=== PATIENT | female | born 1985 | race Caucasian/White ===

== ENCOUNTER 2016-11-18 22:35 | Emergency (ER) | payer SELFPAY ==
[2016-11-18 23:14] VITALS: BP 105/62
== END 2016-11-19 00:11 | disposition left against medical advice (07) ==
LOC: MW.ED 22:35
DX: Z53.21 Procedure and treatment not carried out due to patient leaving prior to being seen by health care provider (principal)
CPT/HCPCS: 99282

== ENCOUNTER 2022-07-23 06:25 | Day surgery (SDC) | payer BC ==
[~2022-07-23 06:25] MED LIST: Scopolamine 1.5 MG Transdermal Patch ONE; Scopolamine 1.5 MG Transdermal Patch TOP ONE; ceFAZolin 2 GM in Premix Bag 1 BAG IV ONE
[2022-07-23] MEDS ORDERED: Lactated Ringers 1,000 ML IV SCH (06:30)
[2022-07-23] MEDS ORDERED: Bupivacaine 0.25% 30 ML SDV ONE (07:28)
[2022-07-23] MEDS ORDERED: Methylene Blue 50 MG/10 ML Ampule ONE (07:28)
[2022-07-23] MEDS ORDERED: Propofol 200 MG/20 ML SDV ONE ×2 (07:42→09:35)
[2022-07-23] MEDS ORDERED: fentaNYL 100 MCG/2 ML SDV ONE (07:42)
[2022-07-23] MEDS ORDERED: Water For Injection, Sterile 20 ML ONE (07:47)
[2022-07-23] MEDS ORDERED: Ropivacaine 0.5% 5 MG/ML 30 ML SDV ONE (07:49)
[2022-07-23] MEDS ORDERED: Famotidine 20 MG/2 ML SDV ONE (07:49)
[2022-07-23] MEDS ORDERED: Morphine Sulfate 10mg/ml SDV ONE (08:17)
[2022-07-23] MEDS ORDERED: Ondansetron 4 MG/2 ML SDV IVPUSH PRN ×2 (08:20→11:17)
[2022-07-23] MEDS ORDERED: Albuterol 0.083% 2.5 MG/3 ML Neb Soln NEB PRN (08:20)
[2022-07-23] MEDS ORDERED: fentaNYL 50 MCG/ML SDV IVPUSH PRN (08:20)
[2022-07-23] MEDS ORDERED: Morphine 2 MG/ML SYRINGE IVPUSH PRN (08:20)
[2022-07-23] MEDS ORDERED: HYDROmorphone 1 MG/ML Syringe IVPUSH PRN (08:20)
[2022-07-23] MEDS ORDERED: Naloxone 0.4 MG/ML SDV IVPUSH PRN (08:20)
[2022-07-23] MEDS ORDERED: Metoclopramide 10 MG/2 ML SDV IVPUSH PRN (08:20)
[2022-07-23] MEDS ORDERED: Dexamethasone 4 MG/ML 5 ML MDV ONE (08:32)
[2022-07-23] MEDS ORDERED: Rocuronium Bromide 50 MG/5 ML Syringe ONE (08:32)
[2022-07-23] MEDS ORDERED: Ondansetron 4 MG/2 ML SDV ONE (08:32)
[2022-07-23] MEDS ORDERED: Fluorescein 5 ML Vial ONE (09:34)
[2022-07-23] MEDS ORDERED: Lidocaine 2% 11 ML Jelly Filled Syringe ONE (09:43)
[2022-07-23] MEDS ORDERED: Phenylephrine HCl 0.5 MG/5 ML AMP ONE (09:44)
[2022-07-23] MEDS ORDERED: ePHEDrine 50 MG/ML SDV ONE (09:44)
[2022-07-23] MEDS ORDERED: Glycopyrrolate 0.2 MG/ML SDV ONE (09:44)
[2022-07-23] MEDS ORDERED: Sugammadex Sodium 200 MG/2 ML VIAL ONE (10:17)
[2022-07-23] MEDS ORDERED: HYDROmorphone 2 MG/ML Syringe ONE (10:18)
[2022-07-23] MEDS ORDERED: Promethazine 25 MG/ML SDV IM PRN (11:17)
[2022-07-23] MEDS ORDERED: Acetaminophen/oxyCODONE 325-5 MG Tab PO PRN (11:17)
[2022-07-23] MEDS: Ketorolac 30 MG/ML SDV IVPUSH PRN ×2 (12:34→20:42)
[2022-07-23] MEDS: Morphine 4 MG/ML Syringe IVPUSH PRN ×2 (15:22→18:49)
[2022-07-24] MEDS: Acetaminophen/oxyCODONE 325-5 MG Tab PO PRN ×3 (01:04→09:36)
[2022-07-24] MEDS: Ketorolac 30 MG/ML SDV IVPUSH PRN (04:35)
[2022-07-24 06:21] LABS: CARBON DIOXIDE,CO2 27.1 mmol/L (21.0-32.0); POTASSIUM,K 3.6 mmol/L (3.5-5.1)
[2022-07-24 08:05] VITALS: BP 107/73; PULSE 68
== END 2022-07-24 11:11 | disposition home or self-care (01) ==
LOC: MW.SDS 06:25 → MW.OB 11:36 → MW.SDS 07-24 11:11
PROVIDERS: ATTEND Obstetrics & Gynecology
DX: N84.0 Polyp of corpus uteri (principal); E28.2 Polycystic ovarian syndrome; F17.290 Nicotine dependence, other tobacco product, uncomplicated; Z98.51 Tubal ligation status; Z79.899 Other long term (current) drug therapy; Z88.5 Allergy status to narcotic agent; Z88.7 Allergy status to serum and vaccine; Z91.012 Allergy to eggs
CPT/HCPCS: 36415; 58552; 80053; 81025; 85025; 86850; 86900; 86901; A9270; J0131; J1100; J1170; J1885; J2270; J2704; J2795; J3010; J3490; J7030; J7120; 00944; 64488; J2370; J2405

== ENCOUNTER 2022-07-31 04:07 | Observation (INO) | payer BC ==
[2022-07-31] MEDS ORDERED: fentaNYL 100 MCG/2 ML SDV IM STA (04:42)
[2022-07-31] MEDS ORDERED: Sodium Chloride 0.9% 2.5 ML Syringe FLUSH PRN (04:42)
[2022-07-31] MEDS ORDERED: Sodium Chloride 0.9% 10 ML Syringe FLUSH PRN (04:42)
[2022-07-31] MEDS ORDERED: HYDROmorphone 2 MG/ML Syringe IVPUSH ONE (05:15)
[2022-07-31] MEDS ORDERED: Scopolamine 1.5 MG Transdermal Patch TRDERM ONE (05:24)
[2022-07-31 05:25] LABS: CARBON DIOXIDE,CO2 28.6 mmol/L (21.0-32.0); POTASSIUM,K 4.1 mmol/L (3.5-5.1)
[2022-07-31] MEDS ORDERED: Piperacillin/Tazobactam 4.5 GM in Sodium Chloride 0.9% 100 ML IV ONE (05:25)
[2022-07-31] MEDS ORDERED: Lactated Ringers 1,000 ML IV SCH (05:30)
[2022-07-31] MEDS ORDERED: Ondansetron 4 MG/2 ML SDV IVPUSH ONE (06:54)
[2022-07-31] MEDS ORDERED: HYDROmorphone 1 MG/ML Syringe IVPUSH ONE (06:54)
[2022-07-31] MEDS ORDERED: Iopamidol 755 MG/ML 500 ML Multipack Bottle IVPUSH STA (06:56)
[2022-07-31] MEDS ORDERED: Sodium Chloride 0.9% 1,000 ML IV ONE ×2 (08:05→08:28)
[2022-07-31] MEDS ORDERED: Acetaminophen/oxyCODONE 325-5 MG Tab PO PRN (09:01)
[2022-07-31] MEDS ORDERED: Aluminum Hydroxide/Magnesium Hydroxide/Simethicone XS Susp 30 ML Cup PO PRN (09:01)
[2022-07-31] MEDS: Acetaminophen/oxyCODONE 325-5 MG Tab PO PRN ×4 (09:57→23:06)
[2022-07-31] MEDS: Lactated Ringers 1,000 ML IV SCH ×2 (10:42→20:01)
[2022-07-31] MEDS: Ondansetron 4 MG/2 ML SDV IVPUSH PRN ×2 (10:44→16:44)
[2022-07-31] MEDS: Piperacillin/Tazobactam 3.375 GM in Sodium Chloride 0.9% 100 ML IV SCH ×3 (11:07→23:08)
[2022-07-31] MEDS: Simethicone 80 MG Tab.Chew PO PRN (13:40)
[2022-07-31] MEDS: Docusate Sodium 100 MG Cap PO SCH (22:03)
[2022-07-31] MEDS ORDERED: Acetaminophen/oxyCODONE 325-5 MG Tab ONE (23:03)
[2022-08-01] MEDS ORDERED: Acetaminophen/oxyCODONE 325-5 MG Tab ONE (03:29)
[2022-08-01] MEDS: Acetaminophen/oxyCODONE 325-5 MG Tab PO PRN ×5 (03:32→22:06)
[2022-08-01] MEDS: Lactated Ringers 1,000 ML IV SCH ×2 (03:44→12:35)
[2022-08-01] MEDS ORDERED: Sodium Chloride 0.9% 100 ML ONE ×4 (05:20→21:51)
[2022-08-01] MEDS: Piperacillin/Tazobactam 3.375 GM in Sodium Chloride 0.9% 100 ML IV SCH ×3 (05:29→16:42)
[2022-08-01] MEDS ORDERED: Ondansetron 4 MG/2 ML SDV ONE (05:36)
[2022-08-01] MEDS: Ondansetron 4 MG/2 ML SDV IVPUSH PRN ×3 (05:37→22:07)
[2022-08-01] MEDS ORDERED: Simethicone 80 MG Tab.Chew ONE (05:45)
[2022-08-01] MEDS: Simethicone 80 MG Tab.Chew PO PRN ×2 (05:46→18:55)
[2022-08-01 07:19] LABS: BLOOD UREA NITROGEN,BUN 5 mg/dL (7.0-18.0); CARBON DIOXIDE,CO2 27.1 mmol/L (21.0-32.0); CHLORIDE,CL 104 mmol/L (98-107); GLUCOSE RANDOM 91 mg/dL (74-106); POTASSIUM,K 3.5 mmol/L (3.5-5.1); SODIUM,NA 139 mmol/L (136-145)
[2022-08-01 07:21] LABS: ESTIMATED GFR 84 mL/min (>60)
[2022-08-01] MEDS: Docusate Sodium 100 MG Cap PO SCH ×2 (08:04→22:05)
[2022-08-02] MEDS: Piperacillin/Tazobactam 3.375 GM in Sodium Chloride 0.9% 100 ML IV SCH ×2 (00:17→04:38)
[2022-08-02] MEDS ORDERED: Sodium Chloride 0.9% 100 ML ONE (04:05)
[2022-08-02] MEDS: Acetaminophen/oxyCODONE 325-5 MG Tab PO PRN ×2 (04:38→08:54)
[2022-08-02] MEDS: Ondansetron 4 MG/2 ML SDV IVPUSH PRN ×2 (04:39→10:41)
[2022-08-02 06:50] LABS: CARBON DIOXIDE,CO2 25.7 mmol/L (21.0-32.0); POTASSIUM,K 3.4 mmol/L (3.5-5.1)
[2022-08-02] MEDS: Docusate Sodium 100 MG Cap PO SCH (09:02)
[2022-08-02 11:55] VITALS: BP 119/76; PULSE 95
== END 2022-08-02 11:15 | disposition home or self-care (01) ==
LOC: MW.ED 04:07 → MW.MS 08:21
PROVIDERS: ADMIT Obstetrics & Gynecology; ATTEND Obstetrics & Gynecology
DX: T81.40XA Infection following a procedure, unspecified, initial encounter (principal); T81.44XA Sepsis following a procedure, initial encounter; A41.4 Sepsis due to anaerobes; E86.0 Dehydration; Z91.012 Allergy to eggs; Z88.5 Allergy status to narcotic agent; Z79.899 Other long term (current) drug therapy; Z87.891 Personal history of nicotine dependence; Z90.710 Acquired absence of both cervix and uterus; Y83.1 Surgical operation with implant of artificial internal device as the cause of abnormal reaction of the patient, or of later complication, without mention of misadventure at the time of the procedure
CPT/HCPCS: 36415; 74177; 80053; 81001; 83605; 83690; 85025; 85610; 85730; 87040; 96361; 96365; 96366; 96372; 96375; 96376; 99285; A9270; G0378; J1170; J2405; J2543; J3010; J3490; J7030; J7120; Q9967; 99284

== ENCOUNTER 2023-09-07 19:21 | Emergency (ER) | payer BC ==
[2023-09-07] MEDS: Ondansetron 4 MG Tab.DIS PO STA (19:53)
[2023-09-07] MEDS: Morphine 4 MG/ML Syringe IM STA (19:53)
[2023-09-07] MEDS: Diazepam 2 MG Tab PO STA (21:37)
[2023-09-07 22:46] VITALS: BP 118/74; PULSE 79
== END 2023-09-07 22:38 | disposition home or self-care (01) ==
LOC: MW.ED 19:21
DX: S22.31XA Fracture of one rib, right side, initial encounter for closed fracture (principal); M54.50 Low back pain, unspecified; Z88.5 Allergy status to narcotic agent; Z88.7 Allergy status to serum and vaccine; Z91.012 Allergy to eggs; Z91.048 Other nonmedicinal substance allergy status; Z79.899 Other long term (current) drug therapy; Z90.710 Acquired absence of both cervix and uterus; Z75.8 Other problems related to medical facilities and other health care; W01.0XXA Fall on same level from slipping, tripping and stumbling without subsequent striking against object, initial encounter
CPT/HCPCS: 72131; 72192; 96372; 99283; A9270; J2270

== ENCOUNTER 2023-12-04 14:44 | Emergency (ER) | payer SELFPAY ==
[2023-12-04] MEDS: Acetaminophen 500 MG Tab PO ONE (15:51)
[2023-12-04] MEDS: Sodium Chloride 0.9% 1,000 ML IV STA (15:51)
[2023-12-04] MEDS: Ondansetron 4 MG/2 ML SDV IVPUSH ONE (15:51)
[2023-12-04 15:58] LABS: BASOPHILS ABSOLUTE AUTO 0.04 K/uL (0.00-0.20); BASOPHILS PERCENT AUTO 0.6 % (0.0-1.0); EOSINOPHILS ABSOLUTE AUTO 0.13 K/uL (0.00-0.45); EOSINOPHILS PERCENT AUTO 1.9 % (0.0-6.0); HEMOGLOBIN 12.7 g/dL (12.0-16.0); IMMATURE GRAN ABSOLUTE AUTO 0.01 K/uL (0.00-0.05); IMMATURE GRAN PERCENT AUTO 0.1 % (0.0-0.4); LYMPHOCYTES ABSOLUTE AUTO 2.29 K/uL (1.00-4.80); LYMPHOCYTES PERCENT AUTO 33.3 % (24.0-44.0); MEAN CORPUSCULAR HEMOGLOBIN 29.1 pg (28.0-32.0); MEAN CORPUSCULAR HGB CONC 33.4 g/dL (32.0-36.0); MEAN CORPUSCULAR VOLUME 87.2 fL (83.0-99.0); MEAN PLATELET VOLUME 9.5 fL (9.4-12.3); MONOCYTES ABSOLUTE AUTO 0.52 K/uL (0.00-0.80); MONOCYTES PERCENT AUTO 7.6 % (0.0-8.0); NEUTROPHILS ABSOLUTE AUTO 3.88 K/uL (1.80-7.70); NEUTROPHILS PERCENT AUTO 56.5 % (41.0-71.0); PLATELET COUNT,PLT 294 K/uL (150-400); RED BLOOD CELL COUNT 4.36 M/uL (4.10-5.30); WHITE BLOOD CELL COUNT,WBC 6.87 K/uL (3.9-11.3)
[2023-12-04 16:27] LABS: A/G RATIO 1.2 (0.9-1.6); ALBUMIN 4.2 g/dL (3.4-5.0); BILIRUBIN TOTAL 0.3 mg/dL (0.2-1.0); CALCIUM 9.1 mg/dL (8.5-10.1); CARBON DIOXIDE,CO2 24.3 mmol/L (21.0-32.0); CREATININE 0.8 mg/dL (0.6-1.0); EST CRCL DRUG DOSING (CG) 67.81 mL/min; POTASSIUM,K 4.5 mmol/L (3.5-5.1); PROTEIN TOTAL,TP 7.6 g/dL (6.4-8.2)
[2023-12-04] MEDS: Lidocaine 2% Viscous Solution 15 ML UD PO ONE (16:30)
[2023-12-04] MEDS: Lidocaine 4% 1 each Patch TOP ONE (16:30)
[2023-12-04] MEDS: Sodium Chloride 0.9% 10 ML Syringe FLUSH PRN (16:31)
[2023-12-04] MEDS: Sodium Chloride 0.9% 2.5 ML Syringe FLUSH PRN (16:31)
[2023-12-04] MEDS: Magnesium Sulfate/Water 2 GM in Premix Bag 1 BAG IV ONE (16:56)
[2023-12-04] MEDS: diphenhydrAMINE 50 MG/ML SDV IVPUSH ONE (16:56)
[2023-12-04 17:42] VITALS: BP 122/89; PULSE 82
== END 2023-12-04 17:41 | disposition home or self-care (01) ==
LOC: MW.ED 14:44
DX: U07.1 COVID-19 (principal); M54.9 Dorsalgia, unspecified; Z91.012 Allergy to eggs; Z88.5 Allergy status to narcotic agent; Z88.7 Allergy status to serum and vaccine; Z91.048 Other nonmedicinal substance allergy status; Z90.710 Acquired absence of both cervix and uterus; W01.0XXA Fall on same level from slipping, tripping and stumbling without subsequent striking against object, initial encounter
CPT/HCPCS: 36415; 72100; 80053; 84703; 85025; 96361; 96374; 96375; 99284; A9270; J1200; J2405; J3475; J3490; J7030